=== PATIENT | female | born 2000 | race Caucasian/White ===

== ENCOUNTER 2021-01-24 00:49 | Inpatient (IN) | payer OTHER ==
[~2021-01-24] VITALS: Ht 170.2 cm; Wt 68.0 kg
--- NOTE | 2021-01-24 02:01 | NUR ---
Patient walked into ER c/o swelling of face and pain that started yesterday AM. Patient states she has facial swelling from a pimple on her nose. pt ambulate with steady gait, a/o x 4 pt able to speak in complete sentences. denies c/p or sob, denies any nausa or vomiting.
[2021-01-24] MEDS ORDERED: MORPHINE SULFATE 4 MG/1 ML DISP.SYRIN IV ONE (02:15)
[2021-01-24] MEDS ORDERED: VANCOMYCIN 1G/D5W 200 ML PIGGYBACK IV ONE (02:15)
[2021-01-24] MEDS ORDERED: IV NORMAL SALINE 1000 ML BAG IV ONE (02:15)
[2021-01-24] MEDS ORDERED: PIPERACILLIN SODIUM/TAZOBACTAM 3.375 G in IV DEXTROSE 5% 50 ML IV ONE (02:15)
[2021-01-24 02:46] LABS: HEMATOCRIT 39.1 % (31.2-41.9); MEAN CORPUSCULAR HEMOGLOBIN 27.2 uug (24.7-32.8); MEAN CORPUSCULAR VOLUME 82.7 fL (75.5-95.3); PLATELET COUNT (AUTO) 280 K/uL (179-408)
[2021-01-24] MEDS ORDERED: VANCOMYCIN 1000 MG VIAL ONE (02:57)
[2021-01-24] MEDS ORDERED: MORPHINE SULFATE 4 MG/1 ML DISP.SYRIN ONE (02:57)
[2021-01-24] MEDS ORDERED: PIPERACILLIN SODIUM/TAZO 3.375 GM VIAL ONE (02:58)
[2021-01-24 03:01] LABS: ALANINE AMINOTRANSFERASE 16 U/L (14-59); ALKALINE PHOSPHATASE 69 U/L (50-136); ASPARTATE AMINOTRANSFERASE 10 U/L (15-37); BILIRUBIN,DIRECT < 0.1 mg/dL (0.0-0.2); BILIRUBIN,TOTAL 0.5 mg/dL (0.2-1.0); CARBON DIOXIDE 28 mmol/L (21-32); CHLORIDE 98 mmol/L (98-107); CREATININE 0.7 mg/dL (0.6-1.3); GLUCOSE 92 mg/dL (74-106); POTASSIUM 3.7 mmol/L (3.5-5.1); TOTAL PROTEIN, SERUM 8.3 g/dL (6.4-8.2); UREA NITROGEN, BLOOD 5 mg/dL (7-18)
[2021-01-24] MEDS ORDERED: VANCOMYCIN IV 200 ML ONE (03:04)
[2021-01-24] MEDS ORDERED: PIPERACILLIN/TAZOBACTAM/D5W 50 ML IV ONE (03:04)
--- NOTE | 2021-01-24 03:06 | NUR ---
niko complted for cat scan of facial with contrast.
[2021-01-24 03:36] LABS: *URINE HCG, QUAL NEGATIVE (NEGATIVE)
[2021-01-24] MEDS ORDERED: SWABABLE VALVE TRANSFER SET EA MC ONE (03:36)
[2021-01-24] MEDS ORDERED: IOHEXOL 300MG/ML 100 ML INFUS..BTL ONE (03:37)
--- NOTE | 2021-01-24 03:37 | NUR ---
PT TAKEN DOWN FOR CT.
--- NOTE | 2021-01-24 05:21 | NUR ---
pt resting with eyes closed. easily awakens to verbal, denies pain or sob.
--- NOTE | 2021-01-24 05:51 | NUR ---
call placed to [facility] for panel call. page to Dr. Maldonado
[2021-01-24] MEDS ORDERED: PIPERACILLIN SODIUM/TAZOBACTAM 4.5 G in IV DEXTROSE 5% 50 ML IV SCH (06:00)
[2021-01-24] MEDS ORDERED: ACETAMINOPHEN 325 MG TABLET PO PRN (06:00)
[2021-01-24] MEDS ORDERED: ONDANSETRON 4 MG/2 ML VIAL IV PRN (06:00)
[2021-01-24] MEDS ORDERED: MAGNESIUM HYDROXIDE 30 ML LIQUID UDC PO PRN (06:00)
--- NOTE | 2021-01-24 06:14 | NUR ---
pt awake alert, pt aware she will be admitted to room 330.
--- NOTE | 2021-01-24 08:22 | NUR ---
Second call to give report, nurse busy again
--- NOTE | 2021-01-24 09:00 | NUR ---
finally, called report to KAVITA Santos
[2021-01-24 09:30] VITALS: BP 118/72
--- NOTE | 2021-01-24 10:07 | NUR ---
admitted pt to [facility] dx facial abscess. alert and oriented x4. noted with facial swelling. denies sob or difficulty breathing. no acute distress belonging list done. kept comfortable. safety precautions in place. inpatient nursing aide tyreeh aware.
[2021-01-24] MEDS: IV NS 1000 ML 1,000 ML IV PRN (10:52)
[2021-01-24] MEDS: PIPERACILLIN SODIUM/TAZOBACTAM 3.375 G in IV DEXTROSE 5% 100 ML IV SCH ×2 (11:10→18:22)
[2021-01-24] MEDS: HYDROCODONE/APAP 5-325MG TABLET PO PRN ×2 (15:40→22:28)
[2021-01-24] MEDS: VANCOMYCIN IV 1,250 MG in IV DEXTROSE 5% 250 ML IV SCH (15:41)
[2021-01-24 16:07] VITALS: BP 123/75
--- NOTE | 2021-01-24 18:56 | NUR ---
resting. no resp distress. iv intact. on iv atb no allergic/adverse reaction. safety precautions kept. needs attended. will endorse accordingly.
--- NOTE | 2021-01-24 19:43 | NUR ---
ambulated to the bathroom and back to bed. with the same ivf on
[2021-01-24 20:15] VITALS: BP 113/68
[2021-01-25] MEDS: VANCOMYCIN IV 1,250 MG in IV DEXTROSE 5% 250 ML IV SCH ×2 (02:12→15:10)
[2021-01-25] MEDS: IV NS 1000 ML 1,000 ML IV PRN ×2 (02:13→14:48)
[2021-01-25] MEDS: PIPERACILLIN SODIUM/TAZOBACTAM 3.375 G in IV DEXTROSE 5% 100 ML IV SCH ×3 (03:18→18:01)
[2021-01-25 04:00] VITALS: BP 135/84
--- NOTE | 2021-01-25 05:21 | NUR ---
temp 100.1. tylenoll dose to be given. Addendum: 01/25/21 at 0741 by [facility] RN2 RN tylenol dose given.
[2021-01-25 06:52] LABS: HEMATOCRIT 37.7 % (31.2-41.9); MEAN CORPUSCULAR HEMOGLOBIN 27.2 uug (24.7-32.8); MEAN CORPUSCULAR VOLUME 82.9 fL (75.5-95.3); PLATELET COUNT (AUTO) 270 K/uL (179-408)
[2021-01-25 07:02] LABS: CREATININE 0.8 mg/dL (0.6-1.3); MAGNESIUM 1.8 mg/dL (1.8-2.4); PHOSPHOROUS 3.3 mg/dL (2.5-4.9); POTASSIUM 3.6 mmol/L (3.5-5.1)
--- NOTE | 2021-01-25 07:41 | NUR ---
Dr Rdogers called and informed about the patient temp 100.1. and asked if the patient need any treatment for the right nare abscess, message left and awaiting response Addendum: 01/25/21 at 0750 by [facility] RN2 RN SAURABH Escobedo informed about the temp 100.1.as Dr Rodgers is not design studio consultant.awaiting response,
[2021-01-25] MEDS: HYDROCODONE/APAP 5-325MG TABLET PO PRN ×2 (09:39→18:02)
[2021-01-25 11:04] VITALS: BP 123/65
[2021-01-25 15:09] VITALS: BP 111/56
--- NOTE | 2021-01-25 15:13 | NUR ---
RECEIVED CALL FROM ASHLEY UGALDE, PER PATIENT NEW PERSON TO GO ON CHART NAME IS TASIA MICHAELS PHONE [phone]
--- NOTE | 2021-01-25 19:36 | NUR ---
Received patient sleeping in bed. Easily arousable, AAO x4. Able to make needs known. Using ice pack to right side of face with some pain relief. Skin remains intact to right side of face. On RA , no c/o SOB. Safety measures initiated, call light within reach.
[2021-01-25 20:22] VITALS: BP 100/51
[2021-01-26] MEDS: HYDROCODONE/APAP 5-325MG TABLET PO PRN ×4 (00:23→13:34)
[2021-01-26] MEDS: VANCOMYCIN IV 1,250 MG in IV DEXTROSE 5% 250 ML IV SCH (02:02)
[2021-01-26] MEDS: PIPERACILLIN SODIUM/TAZOBACTAM 3.375 G in IV DEXTROSE 5% 100 ML IV SCH ×3 (04:03→18:10)
[2021-01-26 04:35] VITALS: BP 112/59
--- NOTE | 2021-01-26 06:42 | NUR ---
Patient sleeping intermittently today. Still c/o pain to right side of face, predominantly to right nare 7-10/09. [place] PO provided as ordered. States she had some clear drainage from right nare but unable to show this RN. No open areas noted to right nare. Patient tolerates ABX treatment. Safety measures continued, call light within reach.
[2021-01-26 12:44] VITALS: BP 106/62
[2021-01-26] MEDS: IV NS 1000 ML 1,000 ML IV PRN (12:44)
[2021-01-26 15:06] LABS: CREATININE 0.7 mg/dL (0.6-1.3); POTASSIUM 3.8 mmol/L (3.5-5.1); VANCOMYCIN,TROUGH 7.5 ug/mL (12.0-20.0)
[2021-01-26 16:25] VITALS: BP 111/58
[2021-01-26] MEDS: VANCOMYCIN IV 1,000 MG in IV DEXTROSE 5% 250 ML IV SCH (16:49)
[2021-01-26 20:37] VITALS: BP 121/74
[2021-01-27] MEDS: VANCOMYCIN IV 1,000 MG in IV DEXTROSE 5% 250 ML IV SCH ×3 (00:12→16:14)
[2021-01-27] MEDS: HYDROCODONE/APAP 5-325MG TABLET PO PRN ×2 (02:13→06:20)
[2021-01-27] MEDS: PIPERACILLIN SODIUM/TAZOBACTAM 3.375 G in IV DEXTROSE 5% 100 ML IV SCH ×3 (02:14→18:35)
[2021-01-27 04:24] VITALS: BP 113/69
[2021-01-27] MEDS: IV NS 1000 ML 1,000 ML IV PRN (05:59)
[2021-01-27 07:28] LABS: HEMATOCRIT 38.4 % (31.2-41.9); MEAN CORPUSCULAR VOLUME 83.1 fL (75.5-95.3); PLATELET COUNT (AUTO) 322 K/uL (179-408)
[2021-01-27 07:52] LABS: CREATININE 0.8 mg/dL (0.6-1.3); MAGNESIUM 1.8 mg/dL (1.8-2.4); PHOSPHOROUS 3.8 mg/dL (2.5-4.9); POTASSIUM 4.1 mmol/L (3.5-5.1)
[2021-01-27] MEDS ORDERED: NEOMY/BACITRA/POLYMYXIN B OINT UD PACKET TP ONE (09:00)
[2021-01-27] MEDS: NEOMY/BACITRAC/POLYMI OINT 28.35 GM TUBE TP SCH ×2 (09:27→16:59)
[2021-01-27 11:02] VITALS: BP 142/64
[2021-01-27 17:05] VITALS: BP 115/51
--- NOTE | 2021-01-27 18:54 | NUR ---
Patient resting bed. AOx3-4. On room air. No signs of acute distress. Patient compliant with medications and care. IV access patent and intact. Call light within reach. Needs anticipated and met. Will endorse to incoming shift for continuity of care.
--- NOTE | 2021-01-27 19:10 | NUR ---
Patient resting with eyes closed, on room air, Iv intact and patent. No signs of acute distress noted at this time. Will continue to monitor. Call lights within reach, safety measures initiated. Belongings placed by bedside within reach.
[2021-01-27 20:15] VITALS: BP 116/64
[2021-01-28] MEDS: VANCOMYCIN IV 1,000 MG in IV DEXTROSE 5% 250 ML IV SCH ×2 (00:51→08:54)
[2021-01-28] MEDS: HYDROCODONE/APAP 5-325MG TABLET PO PRN (00:52)
[2021-01-28] MEDS: PIPERACILLIN SODIUM/TAZOBACTAM 3.375 G in IV DEXTROSE 5% 100 ML IV SCH (02:39)
[2021-01-28 04:25] VITALS: BP 117/70
--- NOTE | 2021-01-28 06:33 | NUR ---
AO x 4, patient slept intermittently throughout the night, on RA o2 saturating at 98%, Vancomycin and Zosyn given, tolerated well, IV intact and patent, states all needs and have been met. No signs of acute distress, no drainage from facial abscess. Denies any pain and discomfort. Call lights within reach, safety measures maintained, will endorse to am shift.
[2021-01-28] MEDS: NEOMY/BACITRAC/POLYMI OINT 28.35 GM TUBE TP SCH (08:54)
--- NOTE | 2021-01-28 09:00 | NUR ---
Received pt from casino shift manager. Pt is a/o x 4, no complaint of pain, no signs of acute distress or discomfort at this time. Applied ointment onto right nostril, pt stated it alleviates the discomfort. Comfort measures provided, call light within reach. Will continue to monitor.
[2021-01-28] MEDS ORDERED: PIPERACILLIN SODIUM/TAZOBACTAM 3.375 G in IV DEXTROSE 5% 50 ML IV SCH (11:00)
[2021-01-28] MEDS ORDERED: SULF1TAB48 PO (11:04)
[2021-01-28] MEDS ORDERED: FAMO-132 PO (11:04)
[2021-01-28] MEDS ORDERED: ACID1TAB4 PO (11:04)
[2021-01-28] MEDS ORDERED: HYDR-4209 PO (11:04)
[2021-01-28] MEDS ORDERED: AMOX-430 PO (11:04)
[2021-01-28 12:00] VITALS: BP 93/40
--- NOTE | 2021-01-28 12:12 | NUR ---
WOUND CARE CONSULT: PT PRESENTS WITH SOME REDNESS TO NOSE, PRESENT ON ADMISSION. NO DRAINAGE NOTED. PT TO BE DISCHARGED TODAY. DEFER TO PMD FOR REDNESS.
--- NOTE | 2021-01-28 16:29 | NUR ---
Pt is being discharged. Pt is a/o x 4, no signs of acute distress at time of discharge. All belongings at hand, all discharge education provided and explained to pt. Medications sent to preferred pharmacy. Pt was given a taxi voucher to the provided address at [address] [place] [address] in [place] [phone]. Pt stated she is staying at a hotel with her sister and their friend due to their home being under renovations. Pt ambulated to taxi. Voucher given to driver education instructor.
== END 2021-01-28 16:20 | disposition home or self-care (01) | DRG 720 ==
LOC: ER 00:58 → TRANSITION 08:27 → MEDSURG3 08:58
PROVIDERS: ADMIT Internal Medicine; ATTEND Internal Medicine
DX: A41.9 Sepsis, unspecified organism (principal); G92.8 Other toxic encephalopathy; L03.211 Cellulitis of face; J34.0 Abscess, furuncle and carbuncle of nose; K13.0 Diseases of lips; E61.1 Iron deficiency; F17.210 Nicotine dependence, cigarettes, uncomplicated; Z20.822 Contact with and (suspected) exposure to COVID-19
CPT/HCPCS: 36415; 70487; 83605; 83735; 84100; 84703; 85025; 87040; 87070; 87077; A4663; G0378; J2270; J2543; J3370; J7030; J7060; Q9967